=== PATIENT | female | born 1965 | race Caucasian/White ===

== ENCOUNTER 2023-12-04 02:01 | Emergency (ER) | payer OTHER ==
[~2023-12-04] VITALS: Ht 175.3 cm; Wt 64.9 kg
[2023-12-04] MEDS ORDERED: AMOX-430 PO (03:07)
[2023-12-04] MEDS: NEOMY/BACITRA/POLYMYXIN B OINT UD PACKET TP ONE (03:11)
[2023-12-04] MEDS: AMOXICILLIN-CLAVUL 875-125MG TABLET PO ONE (03:11)
[2023-12-04] MEDS ORDERED: NEOMY/BACITRA/POLYMYXIN B OINT UD PACKET TP ONE (03:13)
[2023-12-04] MEDS ORDERED: AMOXICILLIN-CLAVUL 875-125MG TABLET ONE (03:13)
[2023-12-04] MEDS ORDERED: TDAP DIPH,PERTUSS,TET VAC/PF 0.5 ML DISP.SYRIN IM ONE (03:27)
[2023-12-04] MEDS: TDAP DIPH,PERTUSS,TET VAC/PF 0.5 ML DISP.SYRIN IM ONE (03:39)
[2023-12-04 03:43] VITALS: BP 136/86; TEMP 98; O2SAT 98
== END 2023-12-04 03:44 | disposition home or self-care (01) ==
LOC: ER 02:16
DX: S01.432A Puncture wound without foreign body of left cheek and temporomandibular area, initial encounter (principal); F32.A Depression, unspecified; F17.200 Nicotine dependence, unspecified, uncomplicated; Z79.899 Other long term (current) drug therapy; W54.0XXA Bitten by dog, initial encounter; Y93.89 Activity, other specified; Y92.89 Other specified places as the place of occurrence of the external cause; Y99.8 Other external cause status
CPT/HCPCS: 90715; A4606; A4663